=== PATIENT | female | born 1995 | race Caucasian/White ===

== ENCOUNTER 2021-07-29 15:08 | Inpatient (IN) ==
--- NOTE | 2021-07-29 15:27 | History & Physical Report ---
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 * GBS-, RI, Rh+ * Presented to L&D following confirmed SROM during MARCIA visit * Admit to L&D * NPO except sips and chips * PRN Pitocin for IOL * Epidural requested/administered * Lactated Ringer's at 125 mL * Continuous electronic heart monitoring * Anticipate History of Present Illness Primary Care Provider: NO PCP Stefania is a 26-year-old [id number] currently at 40.0 WGA with an AWAIS 07/29/2021 as determined by last menstrual period who is here for induction due to SROM confirmed on exam during routine OB visit earlier today. Her was complicated by HGSIL/CAMPBELL grade 3 (status post colposcopy on 05/12no progression). + Contractions; + movement; + fluid loss; no bloody show Had regular appointments with OB. Labs: 07/29/2021 Blood type: B+ Antibody screen: Negative H.9 Hct: 37.1 WBC: 14.45 Plt: 214 Rubella: Immune RPR: Nonreactive Gonorrhea: Not detected Chlamydia: Not detected HIV: Negative HbSAg: Negative GBS: Negative Other screens: cff-DNA: Low risk for trisomy 13, 18, 21, monosomy X, triploidy CF: Negative SMA: Negative Allergies Allergy/AdvReac Type Severity Reaction Status Date / Time No Known Allergies Allergy Verified 07/29/21 15:36 Home Medications Medication Instructions Recorded Confirmed Type prenat.vits,clemente,lvp-xpsi-edzbi 1 tab PO DAILY 07/29/21 07/29/21 History Patient History Medical History (Updated 07/29/21 @ 16:08 by Sarina Salazar MD) No significant medical problems Unknown family medical history Surgical History [place] teeth extracted Family History Unknown Family history unknown patient adopted Social History (Updated 05/20/21 @ 10:05 by Jenna Wood RN) Smoking Status: Never smoker Second Hand Exposure: No; Hx Alcohol Use: No Hx Substance Use: No Preferred Language: Swedish Communication Ability: Effective Client Account Specialist Required: No Beliefs That Will Affect Care: None marital status: marital status details: Gutierrez Bianchi (33) [phone] Current Living Situation: Spouse Current Living Situation Comment: lives with spouse and 2 dogs current occupational status: employed current occupation: Administration Manager Other Information That Helps Us Care for You: No Feels Safe at Home: Yes Safety Concerns: Feels Safe At This Time Assistive Devices: None Review of Systems All systems reviewed & are unremarkable except as noted in HPI & below Physical Exam Physical Exam: General: Alert, oriented. No acute distress. Cardiac: Regular rate and rhythm, no murmurs/rubs/gallops. Respiratory: Clear to auscultation bilaterally a/p, no wheezes/rales/rhonchi. No increased work of breathing. Symmetrical chest rise. No respiratory distress. Pelvic: Dilation 4 cm; Effacement 90; Station -1, per Dr. Agudelo Lower Extremities: No lower extremity edema or swelling. No deep calf pain. Meily's negative bilaterally Baseline: 140 bpm Variability: Moderate Accelerations: Present Decelerations: None Results & Data ([facility]) Vital Signs (Past 12 Hours) Vital Signs Temp Pulse Resp BP 07/29/21 15:16 36.6 C 59 L 20 140/76 Resident Activity Tracking Resident Involvement: Resident Care Provided Care Provided: OB Delivery
[2021-07-29] MEDS ORDERED: OXYTOCIN 30 UNITS/500 ML BAG IV PRN (15:34)
[2021-07-29 16:07] LABS: Hematocrit (blood only) 37.1 % (37-47); Hemoglobin 11.9 g/dL (12.0-16.0); Mean Corpuscular Hemoglobin 26.7 pg (25-34); Mean Corpuscular Hgb Conc 32.1 g/dL (32-36); Mean Corpuscular Volume 83.2 fL (80-100); Platelet Count 214 K/uL (130-400); RDW Coefficient of Variation 16.7 % (11.5-14.5); RDW Standard Deviation 50.4 fL (36.4-46.3); Red Blood Count 4.46 M/uL (4.2-5.4); White Blood Count 14.45 K/uL (4.8-10.8)
[2021-07-29] MEDS ORDERED: fentaNYL citrate 100 MCG/2 ML VIAL ONE (16:24)
[2021-07-29] MEDS ORDERED: ePHEDrine sulfate 50 MG/ML AMP ONE (16:24)
[2021-07-29] MEDS ORDERED: SODIUM CHLORIDE 0.9% INJ 10 ML VIAL ONE (16:24)
[2021-07-29] MEDS ORDERED: BUPIVACAINE 0.25% 30 ML VIAL ONE (16:24)
[2021-07-29] MEDS ORDERED: fentaNYL 2MCG/ML ROPIVACAINE 1.25MG/ML 100 ML BAG EPI ONE (16:25)
[2021-07-29] MEDS: LACTATED RINGER'S 1,000 ML IV PRN ×2 (16:39→17:37)
[2021-07-29] MEDS ORDERED: diphenhydrAMINE 50 MG/ML VIAL IV PRN (19:11)
[2021-07-29] MEDS ORDERED: ONDANSETRON INJ 2 MG/ML 2 ML VIAL IV PRN (19:11)
[2021-07-29] MEDS ORDERED: ePHEDrine sulfate 50 MG/ML AMP IV PRN (19:11)
[2021-07-29] MEDS ORDERED: NALOXONE HCL 1 MG in SODIUM CHLORIDE 0.9% 1000ML 1,000 ML IV PRN (19:11)
[2021-07-29] MEDS ORDERED: PROMETHAZINE HCL 6.25 MG in SODIUM CHLORIDE 0.9% 50 ML IV PRN (19:11)
[2021-07-29] MEDS ORDERED: NALBUPHINE HCL INJ 10 MG/ML AMP IV PRN (19:11)
[2021-07-29] MEDS ORDERED: fentaNYL 2MCG/ML ROPIVACAINE 1.25MG/ML 100 ML BAG EPI PRN (19:11)
[2021-07-29] MEDS ORDERED: NALOXONE HCL 0.4 MG/1 ML VIAL/CARP IV PRN (19:11)
--- NOTE | 2021-07-29 19:11 | Anesthesiology Consultation ---
Date of Service July 29, 2021 Assessment & Plan Chart Review Chart Review: Patient NOT seen in Pre Admission Testing and Acceptable Risk for Labor Epidural Consults Requested none ASA ASA2 Proposed Anesthesia Anesthesia Type: Labor Epidural Risk / Benefits Reviewed With: PT / POA / Parent / Guardian, Accepts Plan and Informed Consent Obtained History Height/Weight Height: 5 ft Weight: 51.71 kg Allergies Allergy/AdvReac Type Severity Reaction Status Date / Time No Known Allergies Allergy Verified 07/29/21 15:36 Medications Home Medications Medication Instructions Recorded Confirmed Last Taken prenat.vits,clemente,wcr-vmyi-teqvc 1 tab PO DAILY 07/29/21 07/29/21 07/29/21 08:00 Active Medications Generic Name Dose Route Start Last Admin Trade Name Freq PRN Reason Stop Dose Admin Lactated Ringer's 1,000 mls @ 125 mls/hr 07/29/21 15:34 07/29/21 17:37 Lr IV 07/31/21 15:33 125 mls/hr .Q8H PRN Administration L&D Protocol Protocol Past Medical History Medical History (Updated 07/29/21 @ 16:08 by aSrina Salazar MD) No significant medical problems Unknown family medical history Exercise / Class Metabolic Activity II 4-5 Yardwork/Stairs/Walk up hill Past Family History Family History Unknown Family history unknown patient adopted Past Surgical History Surgical History [place] teeth extracted Past Anesthesia History No Hx of Anesthesia Complications and No Family Hx of Anesthesia Complications History of PONV No Hx of PONV and No Hx of Motion Sickness Social History Smoking Status: Never smoker Hx Alcohol Use: No Hx Substance Use: No Physical Exam Vital Signs Last Vital Signs Temp 36.9 C 07/29/21 17:06 Pulse 62 07/29/21 19:10 Resp 20 07/29/21 18:24 BP 121/73 07/29/21 19:00 Pulse Ox 99 07/29/21 19:10 ENMT Mouth: no dentition abnormality Thyromental Distance: > or= 3.5 Finger Breadths Mallampati Class: II Neck normal visual inspection Respiratory normal respiratory effort Auscultation: lungs clear to auscultation bilaterally Cardiovascular Rate/Rhythm: regular rate and regular rhythm Psychiatric Orientation: alert Testing Laboratory Results 07/29/21 15:59
--- NOTE | 2021-07-29 23:22 | Delivery Summary ---
Vaginal Delivery Summary Date of Service July 29, 2021 Vaginal Delivery Summary DIAGNOSES: 1. Parrish intrauterine at 40wk gestation. 2. Spontaneous onset of labor, SROM. 3. Group B Streptococcus neg. PROCEDURE: Spontaneous vaginal delivery and repair of second degree laceration. SURGEON: Abbey Perez MD. LABORATORY COURIER: None. ESTIMATED BLOOD LOSS: 500 mL. COMPLICATIONS: None. PLACENTA: Spontaneous and intact with a 3-vessel cord. DISPOSITION: Stable to labor and delivery. DESCRIPTION: The patient pushed well and brought the head to in DOA position. The 's head was allowed to deliver with contraction force and no further active pushing, with the perineum protected during this time. There was one nuchal cord reduced on the perineum. The right shoulder was anterior. The shoulders and body delivered without any difficulty, and the was placed on the maternal abdomen. It was vigorous and moving all extremities, and making respiratory efforts. The cord was doubly clamped by the MD and then cut by the FOB. The placenta delivered spontaneously and was noted to be intact and with a 3VC. The cervix, vagina and perineum were examined and were found to have a second degree laceration, repaired with vicryl suture in the usual manner including a crown stitch to rebuild the perineal body. The fundus was firm and lochia minimal immediately after delivery. Shortly after I left the room I was called back, as the patient appeared to have a brief neurologic event; she closed her eyes and made a shuddering movement limited to her arms that lasted approximately 10 to 15 seconds per the FOB and nurses present. After the movement, she immediately was alert. I re-entered her room as she was finishing the event, as I had been just outside her door at the nursing station when I heard the people in the room call for assistance as they noticed the unusual event. Marci Arce asked the patient what just happened, and the patient focused right on Marci, spoke normally, and seemed surprised that everyone was so worried about her; she said she thought she just drifted off to sleep for a second. She was very pale when I first entered the room and quickly regained a pink normal skin color. Vitals showed BP 80s/50s and pulse 60s which was a significant drop from prior, and consistent with a vagal episode. There was no post-ictal state, nor loss of bowel/bladder control, nor did the event last long enough or fit a description of a generalized enough event to represent an eclamptic seizure. She is maintaining a normal level of alertness and awareness, and is being monitored with LOUANN Harris in room at bedside as change of shift has now occurred. BP remains 95/55 at this time with pulse 63, dilute pitocin is running wide open, and patient feels well. Fundus has been firm and well below umbilicus with trace lochia throughout. [facility] Vaginal Delivery Charge Vaginal Delivery Codes: 35133 global code for the antepartum, delivery, and post-
[2021-07-29] MEDS ORDERED: BENZOCAINE 20% AER SPR 82.5 GM CAN EXT PRN (23:36)
[2021-07-29] MEDS ORDERED: SUPERCREAM 0.870% 15 GM JAR EXT PRN (23:36)
[2021-07-29] MEDS ORDERED: DIPHTHERIA/TETANUS/PERTUSSIS 0.5 ML SYR/VIAL IM ONE (23:36)
[2021-07-29] MEDS ORDERED: ACETAMINOPHEN 325 MG TAB PO PRN (23:36)
[2021-07-29] MEDS ORDERED: oxyCODONE/ACETAMINOPHEN 5mg/325mg TAB PO PRN (23:36)
[2021-07-29] MEDS ORDERED: HYDROCORTISONE ACETATE 25 MG SUPP PR PRN (23:36)
[2021-07-30] MEDS: LACTATED RINGER'S 1,000 ML IV PRN (02:00)
[2021-07-30] MEDS ORDERED: ONDANSETRON INJ 2 MG/ML 2 ML VIAL IV PRN (02:03)
--- NOTE | 2021-07-30 02:53 | Anesthesia Procedure Note ---
Date of Service July 30, 2021 Anesthesia Post Epidural Note Vital Signs Vital Signs: Temp Pulse Resp BP Pulse Ox 36.6 C 90 18 111/58 L 100 07/29/21 23:05 07/30/21 02:06 07/29/21 23:50 07/30/21 02:06 07/30/21 01:42 Notes Mental Status: alert / awake / arousable Nausea / Vomiting: adequately controlled Pain: adequately controlled Airway Patency, RR, SpO2: stable & adequate BP & HR: stable & adequate Hydration State: stable & adequate Neuraxial Anesthesia: was administered and sensory block is resolving Anesthetic Complications: no major complications apparent and Pt Satisfied with anesthetic care Epidural: Removed without complications and With tip intact
[2021-07-30 03:07] LABS: Hematocrit (blood only) 24.9 % (37-47); Hemoglobin 8.1 g/dL (12.0-16.0)
[2021-07-30] MEDS ORDERED: AMMONIA, AROMATIC INHAL 1 EA AMP INH ONE ×2 (05:29→05:33)
[2021-07-30] MEDS: IBUPROFEN 600 MG TAB PO PRN ×4 (05:39→23:45)
--- NOTE | 2021-07-30 06:29 | Communication Note ---
Date of Service: July 30, 2021 I have just been notified that patient had two further vagal episodes, each quite clearly "passing out" with upright positioning, a sense of feeling faint followed by a few seconds of loss of consciousness and quick recovery. One was when she was seated in a wheelchair for transfer, the other just now when she was stood up to go to bathroom. She has been normotensive and without tachycardia other than these episodes, both of which were associated with upright positioning. After the most recent episode she was straight-cathed for 1000cc and this may also have been a factor in her fainting. H&H checked yesterday after delivery was 8.1, and another is pending this morning. There has been no excessive lochia or concern for hemorrhage after the immediate losses at delivery. Will await morning labs to determine if transfusion may be indicated. IV crystalloid bolus has been utilized.
--- NOTE | 2021-07-30 08:06 | Obstetrical Progress Note ---
Date of Service <Sarina Salazar MD - Last Filed: 07/30/21 08:06> July 30, 2021 Assessment & Plan <Sarina Salazar MD - Last Filed: 07/30/21 08:06> (1) Encounter for care and examination after delivery: PPD 1: stable, routine management * patient voiding and ambulating without difficulty * pain well controlled on analgesia * attempt trial of full liquid diet this a.m./afternoon; advance diet as tolerated * trend CBCs * breast feeding * reassess d/c readiness tomorrow <Abbey Perez MD - Last Filed: 07/30/21 08:12> (1) Encounter for care and examination after delivery: Subjective <Sarina Salazar MD - Last Filed: 07/30/21 08:06> Stefania is a 26-year-old who is now PPD 1 following spontaneous vaginal delivery 40.0 weeks. Reports feeling well overall this morning. Subsiding pain well managed on analgesics. Voided via straight catheter x1. Some nausea with attempted trial of full liquid diet, now s/p Zofran. Patient passed out while attempting to ambulate to the bathroom. Improved lochia this morning. for now (will switch to bottlefeeding should breast-feeding prove onerous). Review of Systems Denies fever, chills, sweats Denies shortness of breath, difficulty breathing, chest pain, palpitations, chest pressure. Denies breast pain. Denies dysuria. Denies headache or changes in vision Physical Exam <Sarina Salazar MD - Last Filed: 07/30/21 08:06> General: Alert, oriented. No acute distress. Cardiac: Regular rate and rhythm, no murmurs/rubs/gallops. Respiratory: Clear to auscultation bilaterally a/p, no wheezes/rales/rhonchi. No increased work of breathing. Symmetrical chest rise. No respiratory distress. Abdomen: Soft, nontender, nondistended. Bowel sounds present. Uterus: Uterine fundus firm, palpable 2 cm below umbilicus. Lower Extremities: No lower extremity edema or swelling. No deep calf pain. Emily's negative bilaterally.. Results & Data ([facility]) <Sarina Salazar MD - Last Filed: 07/30/21 08:06> Vital Signs (Past 12 Hours) Vital Signs Temp Pulse Resp BP BP Pulse Ox 07/30/21 04:55 36.6 C 16 111/74 07/30/21 02:06 90 111/58 L 100 07/30/21 01:42 75 100 07/30/21 01:37 79 100 07/30/21 01:32 77 100 07/30/21 01:29 82 111/65 07/30/21 01:27 69 100 07/30/21 01:22 76 88/61 L 100 07/30/21 01:16 81 100 07/30/21 01:11 76 100 07/30/21 01:06 80 100 07/30/21 01:01 81 100 07/30/21 00:56 88 100 07/30/21 00:51 82 106/67 100 07/30/21 00:46 88 100 07/30/21 00:41 74 100 07/30/21 00:36 74 100 07/30/21 00:31 105 H 100 07/30/21 00:26 125 H 100 07/30/21 00:21 78 125/63 100 07/30/21 00:16 81 100 07/30/21 00:11 77 98 07/30/21 00:06 90 112/55 L 100 07/30/21 00:01 76 100 07/29/21 23:56 80 100 07/29/21 23:51 79 116/64 100 07/29/21 23:50 18 07/29/21 23:46 97 H 100 07/29/21 23:41 95 H 100 07/29/21 23:36 98 H 112/65 100 07/29/21 23:31 76 100 07/29/21 23:26 88 100 07/29/21 23:21 96 H 95/58 L 100 07/29/21 23:16 72 100 07/29/21 23:11 63 100 07/29/21 23:06 67 100 07/29/21 23:05 36.6 C 18 07/29/21 23:02 67 95/55 L 07/29/21 23:01 90 100 07/29/21 23:00 69 94/54 L 07/29/21 22:56 67 89/54 L 100 07/29/21 22:54 70 87/51 L 07/29/21 22:45 115 H 113/67 07/29/21 22:36 112 H 99 07/29/21 22:31 81 98 07/29/21 22:26 99 H 99 07/29/21 22:21 68 99 07/29/21 22:16 68 100 07/29/21 22:15 97 H 191/108 H 07/29/21 22:11 87 99 07/29/21 22:07 90 94 07/29/21 22:06 72 97 07/29/21 22:01 64 20 99 07/29/21 21:58 77 93 07/29/21 21:56 88 100 07/29/21 21:51 79 100 07/29/21 21:46 74 99 07/29/21 21:45 61 146/80 H 07/29/21 21:41 76 99 07/29/21 21:36 76 98 07/29/21 21:35 85 93 07/29/21 21:31 20 07/29/21 21:30 65 144/86 H 98 07/29/21 21:25 61 100 07/29/21 21:20 72 100 07/29/21 21:15 58 L 151/87 H 100 07/29/21 21:10 69 100 07/29/21 21:05 57 L 100 07/29/21 21:01 37.0 C 20 07/29/21 21:00 64 139/82 100 07/29/21 20:55 60 100 07/29/21 20:50 69 100 07/29/21 20:45 58 L 131/77 100 07/29/21 20:40 60 100 07/29/21 20:35 58 L 100 07/29/21 20:31 57 L 20 137/78 07/29/21 20:30 57 L 100 07/29/21 20:25 57 L 100 07/29/21 20:20 59 L 100 07/29/21 20:15 63 125/82 100 07/29/21 20:10 58 L 20 100 07/29/21 20:05 57 L 100 07/29/21 20:01 69 125/83 07/29/21 20:00 61 99 07/29/21 19:55 56 L 20 99 <Abbey Perez MD - Last Filed: 07/30/21 08:12> Co-Signing Physician Notes Resident Physician Supervision Note: I interviewed and examined the patient. Discussed with Dr. Michaels and agree with findings and plan as documented in the note. Any exceptions or clarifications are listed here: [ ] Documented By: Abbey Perez MD, FACOG Resident Activity Tracking <Sarina Salazar MD - Last Filed: 07/30/21 08:06> Resident Involvement: Resident Care Provided Care Provided: OB Delivery
[2021-07-30] MEDS: PRENATAL VITAMIN 1 TAB PO SCH (08:35)
[2021-07-30] MEDS: DOCUSATE SODIUM 100 MG CAP PO SCH ×2 (08:35→20:25)
[2021-07-30 08:48] LABS: Hematocrit (blood only) 24.7 % (37-47); Hemoglobin 7.9 g/dL (12.0-16.0); Mean Corpuscular Hemoglobin 26.6 pg (25-34); Mean Corpuscular Volume 83.2 fL (80-100); Mean Platelet Volume 11.2 fL (7.4-10.4); Platelet Count 190 K/uL (130-400); RDW Standard Deviation 50.8 fL (36.4-46.3); Red Blood Count 2.97 M/uL (4.2-5.4); White Blood Count 23.79 K/uL (4.8-10.8)
--- NOTE | 2021-07-30 16:04 | Obstetrical Progress Note ---
Date of Service July 30, 2021 Assessment & Plan (1) Encounter for care and examination after delivery: Plan: H/H stable from immediately after delivery, pt feeling improved. Notes that when she even gets 1 vial of blood drawn, she feels fatigued for the next few hours and that is normal for her. I suspect her responses are due to her size and lack of much reservoir to respond to an EBL from delivery. Blood count is stable and would not warrant blood transfusion, we discussed transfusion again given her symptoms and she feels ok that do not think indicated at this time, particularly given what her normal response to blood loss is. Iron is now ordered to start tonight. Will continue to monitor. Admission and Anticipated Discharge Date Admission Date: July 29, 2021 Subjective Pt resting comfortably in bed, feeding baby. Up to bathroom a bit ago and got tired at the end, had some assistance but no vagal episode. Physical Exam Constitutional: WD/WN, vitals as above Respiratory: normal respiratory effort; no respiratory distress and no labored breathing Results & Data ([facility]) Vital Signs (Past 12 Hours) Vital Signs Temp Resp BP 07/30/21 15:32 97.7 F 16 111/70 07/30/21 11:50 97.9 F 20 113/70 07/30/21 09:18 98.2 F 16 122/81 07/30/21 04:55 97.9 F 16 111/74 PG Care Time/CCT Total # of Minutes Spent Total Time Spent with Patient: Total time spent is greater than 50% in coordination of care (as documented) at patient's floor/unit and/or counseling patient: Coding Level of Care Code None Diagnoses Encounter for care and examination after delivery Z39.2
[2021-07-30] MEDS: FERROUS SULFATE 325 MG TAB PO SCH (19:43)
--- NOTE | 2021-07-31 08:16 | Obstetrical Progress Note ---
Date of Service July 31, 2021 Assessment & Plan (1) Encounter for care and examination after delivery: 26 yo PP2 from , doing well -Meeting all pp milestones. -B+/rubella immune/ -f/u 6 weeks for appt, stable for d/c home today. Discussed getting up slowly when at home, continuing iron pill, pt verbalized understanding Subjective Ambulation: ambulating normally Voiding: no voiding problems Passing Gas:: Yes Diet Tolerance:: regular diet Lochia:: Small Feeding Type:: breast feeding Pain well managed with medication. Pt's ability to ambulate is improving, pt had noted yesterday that she gets very fatigued with even getting blood drawn. Feels like she is doing better now, still gets fatigued but not like yesterday Review of Systems Denies fevers, chills, n/v, EWING, CP, SOB Physical Exam Constitutional WD/WN, vitals as above no acute distress Respiratory normal respiratory effort, lungs clear to auscultation Cardiovascular RRR, no murmur, no edema Gastrointestinal (Abdomen) Percussion/Palpation: abdomen soft; abdomen nontender fundus firm at umbilicus and NT Musculoskeletal BLE symmetric, nonerythematous, nontender Results & Data ([facility]) Vital Signs (Past 12 Hours) Vital Signs Temp Pulse Resp BP 07/31/21 00:10 98.1 F 72 16 115/73 07/30/21 20:30 97.9 F 85 16 121/72
[2021-07-31] MEDS: PRENATAL VITAMIN 1 TAB PO SCH (08:58)
[2021-07-31] MEDS: IBUPROFEN 600 MG TAB PO PRN (08:58)
[2021-07-31] MEDS: DOCUSATE SODIUM 100 MG CAP PO SCH (08:58)
[2021-07-31 09:13] LABS: Hematocrit (blood only) 21.2 % (37-47); Hemoglobin 6.7 g/dL (12.0-16.0)
--- NOTE | 2021-07-31 09:39 | Communication Note ---
Date of Service: July 31, 2021 RN informed me that H/H had returned at 6.7. Met with pt again following result and reviewed trend of H/H with her. Since I was last in room pt states she went to bathroom and that was the best that she had felt since delivery and feels like she has been improving each time that she has gotten up overnight. This last time she did not feel fatigued, lightheaded/dizzy, or like her legs were weak. Vitals remain stable. Discussed risks vs benefits of blood transfusion. At this time, pt would like to see how she does in the shower and then make de cision. RN informed, she will see how she does
[2021-07-31] MEDS ORDERED: SODIUM CHLORIDE 0.9% 250 ML IV PRN (10:20)
[2021-07-31] MEDS ORDERED: diphenhydrAMINE Capsule 25 MG CAP PO ONE (10:22)
--- NOTE | 2021-07-31 10:29 | Communication Note ---
Date of Service: July 31, 2021 Pt and partner told nursing they would actually like to proceed with transfusion which I am in agreement with. Consent for blood transfusion including risks, benefits, alternatives with risks including fever, chills, allergic reaction, TRALI, infection were reviewed. Consent signed after all questions answered, will plan to pre-medicate and transfuse 1u with a post transfusion h/h 1hr after
[2021-07-31] MEDS: FERROUS SULFATE 325 MG TAB PO SCH (11:45)
[2021-07-31] MEDS ORDERED: ONDANSETRON 4 MG OD TAB PO PRN (13:59)
[2021-07-31 15:13] LABS: Hematocrit (blood only) 28.3 % (37-47); Hemoglobin 9.1 g/dL (12.0-16.0)
--- NOTE | 2021-07-31 17:07 | Obstetrical Progress Note ---
Date of Service July 31, 2021 Assessment & Plan (1) Encounter for care and examination after delivery: Plan: Feeling much better after transfusion, feels comfortable with discharge. Stable to do so, will continue iron Admission and Anticipated Discharge Date Admission Date: July 29, 2021 Subjective s/p 1u pRBC. H/H showed good rise. Was able to ambulate to bathroom, void and have BM without difficulty. Denies lightheadedness, dizziness, fatigue Physical Exam Constitutional: WD/WN, vitals as above Respiratory: normal respiratory effort; no respiratory distress and no labored breathing Results & Data ([facility]) Vital Signs (Past 12 Hours) Vital Signs Temp Pulse Pulse Resp BP BP Pulse Ox 07/31/21 17:00 97.7 F 72 18 128/69 98 07/31/21 14:45 97.7 F 81 18 119/75 98 07/31/21 13:45 97.9 F 74 18 113/70 100 07/31/21 13:15 97.5 F L 67 18 132/83 100 07/31/21 12:45 98.2 F 69 18 122/76 100 07/31/21 12:30 97.7 F 72 18 97/64 L 100 07/31/21 12:12 97.3 F L 74 18 122/77 07/31/21 08:50 97.7 F 72 18 128/69 99 PG Care Time/CCT Total # of Minutes Spent Total Time Spent with Patient: Total time spent is greater than 50% in coordination of care (as documented) at patient's floor/unit and/or counseling patient: Coding Level of Care Code None Diagnoses Encounter for care and examination after delivery Z39.2
== END 2021-07-31 19:45 | disposition home or self-care (01) | DRG 807 ==
LOC: OPB 15:08 → 4S1 15:09 → 4S2 07-30 02:20

== ENCOUNTER 2025-07-02 23:07 | Inpatient (IN) ==
[2025-07-02] MEDS ORDERED: LIDOCAINE 1% LOCAL 20 ML VIAL INFIL PRN (23:54)
[2025-07-02] MEDS ORDERED: ACETAMINOPHEN 500 MG TAB PO PRN (23:54)
[2025-07-02] MEDS ORDERED: OXYTOCIN 30 UNITS/NSS 30 UNITS/500 ML BAG IV PRN (23:54)
[2025-07-02] MEDS ORDERED: CALCIUM CARBONATE 500 MG CHEWABLE TAB PO PRN (23:54)
[2025-07-03] MEDS: LACTATED RINGER'S 1,000 ML IV PRN (00:03)
[2025-07-03] MEDS: PENICILLIN GK 6 MU in DEXTROSE 5% 250 ML IV STA (00:15)
[2025-07-03 00:27] LABS: Hematocrit (blood only) 36.8 % (37.0-47.0); Hemoglobin 13.4 g/dL (12.0-16.0); Mean Corpuscular Hemoglobin 31.6 pg (25.0-34.0); Mean Corpuscular Volume 86.8 fL (80.0-100.0); Platelet Count 207 K/uL (130-400); RDW Standard Deviation 40.2 fL (36.4-46.3); Red Blood Count 4.24 M/uL (4.20-5.40); White Blood Count 15.38 K/ul (4.8-10.8)
--- NOTE | 2025-07-03 00:54 | Anesthesiology Consultation ---
Date of Service July 03, 2025 Assessment & Plan Chart Review Chart Review: Acceptable Risk for Labor Epidural Consults Requested none History Height/Weight Height: 5 ft Weight: 56.245 kg Allergies Allergy/AdvReac Type Severity Reaction Status Date / Time No Known Allergies Allergy Verified 07/02/25 15:13 Medications Home Medications Medication Instructions Recorded Confirmed Last Taken ascorbate calcium (vitamin C) 500 500 mg PO DAILY 11/20/22 07/02/25 07/02/25 mg tablet hydrocortisone 1 % topical cream 1 applic topical DAILY PRN 01/08/23 07/02/25 Unknown (Nieto Formula HC) hemorrhoid #28.4 grams clobetasol 0.05 % topical cream 1 applic topical BID PRN Rash 07/10/24 07/02/25 Unknown vits no.126-ferrous fum 1 tab PO DAILY 08/29/24 07/02/25 07/02/25 28 mg iron-folic acid 800 mcg tablet (Classic ) progesterone micronized 200 mg 200 mg vaginal QPM 30 days #30 caps 03/02/25 07/02/25 07/01/25 capsule (Prometrium) Active Medications Generic Name Dose Route Start Last Admin Trade Name Freq PRN Reason Stop Dose Admin Lactated Ringer's 1,000 mls @ 125 mls/hr 07/02/25 23:54 07/03/25 00:03 Lr IV 07/04/25 23:53 999 mls/hr .Q8H PRN Administration L&D Protocol Protocol Penicillin G Potassium 6 mu/ 262 mls @ 250 mls/hr 07/02/25 23:54 07/03/25 00:15 Dextrose IV 07/03/25 00:56 250 mls/hr NOW STA Administration Past Medical History Medical History Vaginitis 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 HSIL (high grade squamous intraepithelial lesion) on Pap smear of cervix 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 History of blood transfusion (2021) after vaginal delivery, had syncopal episodes Hx of syncope (2021) after delivery of baby-required blood transfusion- no issues since Past Family History Family History Unknown Family history unknown Past Surgical History Surgical History Status post colposcopy H/O LEEP Status post hysteroscopy Hx of dilation and curettage [place] teeth extracted Social History Smoking Status: Never smoker Do You Dip or Chew Tobacco: No Hx Alcohol Use: Yes Alcohol type: wine alcohol intake frequency: a few times a week Hx Substance Use: No substance use type: does not use Physical Exam Vital Signs Last Vital Signs Temp 36.7 C 07/02/25 23:33 Pulse 89 07/03/25 00:51 Resp 18 07/02/25 23:33 BP 140/78 07/02/25 23:23 Pulse Ox 100 07/03/25 00:51 Testing Laboratory Results 07/03/25 00:11
[2025-07-03] MEDS ORDERED: NALOXONE HCL 0.4 MG/1 ML VIAL/CARP IV PRN ×2 (00:55→13:33)
[2025-07-03] MEDS ORDERED: NALOXONE HCL 1 MG in SODIUM CHLORIDE 0.9% 1,000 ML IV PRN ×2 (00:55→13:33)
[2025-07-03] MEDS ORDERED: SODIUM CHLORIDE 0.9% PF INJ 10 ML VIAL EPI PRN (00:55)
[2025-07-03] MEDS ORDERED: ROPIVACAINE 0.5% PF 5 MG/ML 20 ML VIAL EPI PRN (00:55)
[2025-07-03] MEDS ORDERED: BUPIVACAINE 0.25% PF 30 ML VIAL EPI PRN (00:55)
[2025-07-03] MEDS ORDERED: fentANYL 2 MCG/ML BUPIVacaine 0.125%-NSS 100ML BAG EPI PRN (00:55)
[2025-07-03] MEDS ORDERED: diphenhydrAMINE 50 MG/ML VIAL IV PRN ×3 (00:55→13:33)
[2025-07-03] MEDS ORDERED: NALBUPHINE HCL INJ 10 MG/ML AMP IV PRN ×2 (00:55→13:33)
[2025-07-03] MEDS ORDERED: LIDOCAINE 2% MPF LOCAL 5 ML VIAL EPI PRN (00:55)
[2025-07-03] MEDS: LIDOCAINE 2%/EPINEPHRINE 1:200,000 20 ML PF ONE (01:18)
[2025-07-03] MEDS: fentANYL 2 MCG/ML BUPIVacaine 0.125%-NSS 100ML BAG ONE (01:19)
[2025-07-03] MEDS ORDERED: OXYTOCIN 30 UNITS/NSS 30 UNITS/500 ML BAG IV PRN (03:42)
[2025-07-03] MEDS: PENICILLIN GK 3 MU in DEXTROSE 5% 100 ML IV PRN (04:26)
[2025-07-03] MEDS ORDERED: OXYTOCIN 10 UNITS/ML VIAL ONE ×4 (06:06→06:18)
[2025-07-03] MEDS ORDERED: MoRPHine SULFATE PF 1 MG/ML 10 ML AMP/VIAL ONE (06:10)
[2025-07-03] MEDS ORDERED: HYDROCORTISONE ACETATE 25 MG SUPP PR PRN (06:33)
[2025-07-03] MEDS ORDERED: diphenhydrAMINE Capsule 25 MG CAP PO PRN (06:33)
[2025-07-03] MEDS ORDERED: CALCIUM CARBONATE 500 MG CHEWABLE TAB PO PRN (06:33)
[2025-07-03] MEDS ORDERED: MAGNESIUM HYDROXIDE SUSP 30 ML UDC PO PRN (06:33)
[2025-07-03] MEDS ORDERED: BENZOCAINE 20% SPRY 85 APPLN/85 GM CAN EXT PRN (06:33)
[2025-07-03] MEDS ORDERED: SENNA 8.6 MG TAB PO PRN (06:33)
[2025-07-03] MEDS ORDERED: HYDROmorphone INJ 0.5 MG/0.5 ML SYR IV PRN ×2 (06:33→13:33)
--- NOTE | 2025-07-03 06:34 | Operative Report ---
Post Operative Report Pre & Post Diagnosis Operation Date: 07/03/25 05:30 Pre-Op Diagnosis: 1.) SROM 2.) Spontaneous labor 3.) intolerance to labor 4.) Terminal bradycardia Post-Op Diagnosis: Same as pre op I identified the patient and participated in the time-out.: Yes Procedure Operation Date: 07/03/25 05:30 Actual Procedures p Primary Section for the of a live female child at 0544. - Darwin Agudelo MD Surgeon Darwin Agudelo MD Paper Rewinder Operator Nursing staff Quantitative Blood Loss (QBL) 584 Findings Consistent with Post-Op Diagnosis Specimens Placenta and cord blood Indications Called to bedside for evaluation due to recurrent variable decelerations with minimal variability. Patient was checked and found to be 1 cm dilated 80% effaced -2 station. At that time heart rate was within the normal range and discussed proceeding with a secondary to intolerance of labor remote from delivery with inability to augment. Presented to discussed consent forms which were reviewed and signed in detail. During the consent review and discussion heart rate was noted to proceed into a terminal bradycardia with heart rate in the 60s to 70s without return to baseline for over 5 minutes. Due to the category 2 tracing preceding and transitioning into terminal bradycardia we proceed with a stat section and the patient was quickly taken to the operating room. Description of Procedure Upon presentation to the operating room anesthesia was already present and preparing to bolus the epidural which was bolused as part of the prep process. Placed the heart rate monitor which was still noted intermittently in the 60s and otherwise nondetectable. I did a test for adequate pain control with an Allis clamp before sterile set up and patient noted no significant pain with Allis. A Betadine splash was performed and drape applied. A Pfannenstiel incision was made with a knife. The subcutaneous layers were then dissected bluntly and the fascia nicked in the midline and extended bluntly in both d irections. The abdomen was then entered bluntly and placed on stretch for adequate delivery space. Low transverse uterine incision was then made with a knife and the uterus entered bluntly and placed on stretch provide adequate room for delivery. was noted be in cephalic position and delivered without difficulty. appeared ashen with poor tone upon delivery and the cord was quickly doubly clamped and cut and taken to the awaiting nursery staff. Cord segment for Cord blood gases obtained. Attempt to get Cord blood for Rh eval was unsuccessful with no blood remaining in cord. Placenta delivered with gentle cord traction and fundal massage. Uterus was wrapped in a wet lap and cleaned of clot and debris's with a dry lap. Uterus was then reapproximated with 0 Vicryl continuous running locked stitch. A second imbricating layer of 0 Vicryl performed. Hemostasis noted and uterus returned to maternal abdomen. Inspection of the paracolic gutters performed and h emostasis noted. Inspection subcutaneous fascial muscle layers noted hemostasis. Fascia was reapproximated with 0 Vicryl in continuous running stitch. An x-ray was then performed as a count was not able to be performed prior to initiating the procedure and x-ray noted to be clear. The subcutaneous later reapproximated with 2-0 plain with continuous running stitch. Skin layers reapproximated with 3-0 Vicryl in a subcuticular stitch. Dermabond placed on top. No complications noted and blood loss per QBL in chart. I attest to the content of the Intraoperative Record and any orders documented therein. Any exceptions are noted below.
--- NOTE | 2025-07-03 06:49 | XRay Report ---
KUB CLINICAL HISTORY: emergency , no count COMPARISON STUDY: None. FINDINGS: A saline bag is layering on the patient. An epidural catheter is noted. There are no unexpe cted radiopaque foreign bodies within the abdomen or pelvis. IMPRESSION: No unexpected radiopaque foreign bodies within the abdomen or pelvis. ACT 112: Negative or not required by law. Electronically signed by: Maged Mendiola M.D. 07/03/2025 6:46 AM
--- NOTE | 2025-07-03 06:53 | Anesthesia Procedure Note ---
Date of Service July 03, 2025 Anesthesia Post Epidural Note Vital Signs Vital Signs: Temp Pulse Resp BP Pulse Ox 37.2 C 100 H 18 128/58 L 95 07/03/25 04:36 07/03/25 06:50 07/03/25 03:30 07/03/25 06:50 07/03/25 06:50 Notes Mental Status: alert / awake / arousable Nausea / Vomiting: adequately controlled Pain: adequately controlled Airway Patency, RR, SpO2: stable & adequate BP & HR: stable & adequate Hydration State: stable & adequate Neuraxial Anesthesia: was administered and sensory block is resolving Anesthetic Complications: no major complications apparent and Pt Satisfied with anesthetic care Epidural: Removed without complications and With tip intact
[2025-07-03 07:15] LABS: Cord Venous Blood PO2 42 mmHg (14.1-43.3)
[2025-07-03] MEDS: KETOROLAC 30 MG/ML VIAL IV SCH (07:18)
[2025-07-03] MEDS: ACETAMINOPHEN 325 MG TAB ONE (07:29)
[2025-07-03] MEDS ORDERED: Nursing to Pharmacy Communication SCH ×2 (07:30→10:00)
[2025-07-03] MEDS: ACETAMINOPHEN 325 MG TAB PO SCH ×2 (08:06→12:51)
[2025-07-03] MEDS: DOCUSATE SODIUM 100 MG CAP PO SCH (08:07)
[2025-07-03] MEDS: PRENATAL VITAMIN 1 TAB PO SCH (08:07)
[2025-07-03] MEDS: FERROUS SULFATE 325 MG TAB PO SCH (08:07)
[2025-07-03] MEDS: METHYLERGONOVINE MALEATE 0.2 MG/ML AMP IM ONE (08:23)
[2025-07-03] MEDS: DIPHTHER/TETAN/PERTUS Vaccine (Tdap, Adol/Adult) 0.5mL IM ONE (08:25)
--- NOTE | 2025-07-03 08:32 | Anesthesiology Progress Note ---
Date of Service July 03, 2025 Anesthesia Post Procedure Vital Signs Vital Signs: Temp Pulse Resp BP Pulse Ox 07/03/25 08:25 78 100 07/03/25 08:21 74 93 07/03/25 08:20 69 99 07/03/25 08:16 68 130/64 07/03/25 08:15 68 100 07/03/25 08:10 68 100 07/03/25 08:05 93 H 100 07/03/25 08:00 97 H 100 07/03/25 07:55 89 100 07/03/25 07:50 84 100 07/03/25 07:45 36.5 C 90 18 116/63 100 07/03/25 07:45 90 116/63 100 07/03/25 07:40 82 99 07/03/25 07:39 80 109/58 L 07/03/25 07:35 78 20 109/58 L 99 07/03/25 07:35 72 96 07/03/25 07:30 101 H 98 07/03/25 07:29 81 115/65 92 07/03/25 07:25 68 22 115/65 99 07/03/25 07:25 78 99 07/03/25 07:20 76 96 07/03/25 07:19 90 121/66 07/03/25 07:15 68 18 121/66 100 07/03/25 07:15 105 H 98 07/03/25 07:10 94 H 98 07/03/25 07:09 96 H 117/65 07/03/25 07:05 68 18 116/63 100 07/03/25 07:05 80 97 07/03/25 07:00 104 H 109/52 L 98 07/03/25 06:55 93 H 20 116/63 100 07/03/25 06:55 89 97 07/03/25 06:50 100 H 128/58 L 95 07/03/25 06:45 36.6 C 07/03/25 06:40 109 H 114/56 L 07/03/25 05:36 114 H 100 07/03/25 05:31 93 H 100 07/03/25 05:26 86 100 07/03/25 05:21 83 99 07/03/25 05:16 83 99 07/03/25 05:12 83 103/54 L 07/03/25 05:11 83 98 07/03/25 05:06 85 99 07/03/25 05:01 85 99 07/03/25 04:56 84 100 07/03/25 04:51 83 99 07/03/25 04:46 86 99 07/03/25 04:42 85 119/65 07/03/25 04:41 85 99 07/03/25 04:36 37.2 C 84 98 07/03/25 04:31 87 99 07/03/25 04:26 84 98 07/03/25 04:21 99 H 99 07/03/25 04:16 98 H 99 07/03/25 04:13 87 110/62 07/03/25 04:11 84 99 07/03/25 04:06 98 H 99 07/03/25 04:01 83 98 07/03/25 03:56 84 97 07/03/25 03:51 80 97 07/03/25 03:46 78 98 07/03/25 03:42 80 107/57 L 07/03/25 03:41 77 98 07/03/25 03:36 76 98 07/03/25 03:31 79 99 07/03/25 03:30 18 07/03/25 03:30 18 07/03/25 03:26 83 100 07/03/25 03:21 80 100 07/03/25 03:16 77 100 07/03/25 03:11 90 100 07/03/25 03:10 37.1 C 80 18 120/61 07/03/25 03:06 85 100 07/03/25 03:01 86 100 07/03/25 02:56 81 100 07/03/25 02:54 88 111/56 L 07/03/25 02:51 88 100 07/03/25 02:46 83 100 07/03/25 02:41 83 100 07/03/25 02:39 83 110/57 L 07/03/25 02:36 84 100 07/03/25 02:31 82 100 07/03/25 02:26 82 100 07/03/25 02:25 84 115/58 L 07/03/25 02:21 82 100 07/03/25 02:16 90 99 07/03/25 02:15 18 07/03/25 02:15 18 07/03/25 02:11 86 99 07/03/25 02:09 93 H 118/62 07/03/25 02:06 89 97 07/03/25 02:01 84 98 07/03/25 02:00 18 07/03/25 02:00 18 07/03/25 01:56 99 07/03/25 01:56 90 07/03/25 01:56 88 125/68 07/03/25 01:51 88 99 07/03/25 01:46 86 100 07/03/25 01:45 18 07/03/25 01:45 18 07/03/25 01:41 85 99 07/03/25 01:40 83 124/66 07/03/25 01:36 86 100 07/03/25 01:31 83 99 07/03/25 01:30 18 07/03/25 01:30 18 07/03/25 01:26 86 100 07/03/25 01:23 90 125/67 07/03/25 01:21 37.4 C 98 H 18 124/69 100 07/03/25 01:19 86 126/68 07/03/25 01:17 101 H 130/65 07/03/25 01:16 94 H 136/64 100 07/03/25 01:13 91 H 134/72 07/03/25 01:11 97 H 100 07/03/25 01:06 92 H 100 07/03/25 01:01 76 100 07/03/25 00:56 83 100 07/03/25 00:51 89 100 07/02/25 23:33 36.7 C 18 07/02/25 23:23 80 140/78 Transfer of Care Handoff Completed per policy Notes Mental Status: alert / awake / arousable and participated in evaluation Nausea / Vomiting: adequately controlled Pain: adequately controlled Airway Patency, RR, SpO2: stable & adequate BP & HR: stable & adequate Hydration State: stable & adequate Neuraxial Anesthesia: was administered and sensory block is resolving Anesthetic Complications: no major complications apparent and Pt Satisfied with anesthetic care
[2025-07-03] MEDS: ONDANSETRON INJ 2 MG/ML 2 ML VIAL IV PRN (08:41)
[2025-07-03] MEDS: SODIUM CHLORIDE 0.9% PF INJ 10 ML VIAL ONE (10:27)
[2025-07-03] MEDS: BUPIVACAINE 0.25% PF 30 ML VIAL ONE (10:27)
[2025-07-03] MEDS: LIDOCAINE 2%/EPINEPHRINE 1:200,000 20 ML PF EPI STA (10:27)
[2025-07-03] MEDS: SODIUM CHLORIDE 0.9% PF INJ 10 ML VIAL EPI STA (10:27)
[2025-07-03] MEDS: BUPIVACAINE 0.25% PF 30 ML VIAL EPI STA (10:27)
[2025-07-03] MEDS: PROMETHAZINE 12.5 MG/50.5 ML BAG IV PRN (11:03)
[2025-07-03] MEDS: OXYTOCIN 20 UNITS/LR 1,002 ML IV SCH (12:08)
[2025-07-03] MEDS ORDERED: ACETAMINOPHEN 325 MG TAB PO SCH (12:30)
[2025-07-03] MEDS: AMPICILLIN/SULBACTAM SOD 1,500 MG/100 ML BAG IV SCH (12:33)
[2025-07-03] MEDS: SIMETHICONE 80 MG CHEW PO SCH (12:52)
[2025-07-03] MEDS ORDERED: PROMETHAZINE 6.25 MG/50.25 ML BAG IV PRN (13:33)
[2025-07-03] MEDS ORDERED: LACTATED RINGER'S 500 ML IV PRN (13:33)
[2025-07-03] MEDS ORDERED: MoRPHine SULFATE PF 1 MG/ML 10 ML AMP/VIAL EPI ONE (13:33)
[2025-07-03] MEDS ORDERED: NALOXONE HCL 0.08 MG in SYRINGE 1.8 ML IV PRN (13:33)
[2025-07-03 13:40] LABS: Hematocrit (blood only) 31.7 % (37.0-47.0); Hemoglobin 11.2 g/dL (12.0-16.0); Mean Corpuscular Hemoglobin 31.2 pg (25.0-34.0); Mean Corpuscular Volume 88.3 fL (80.0-100.0); Platelet Count 184 K/uL (130-400); RDW Standard Deviation 41.8 fL (36.4-46.3); Red Blood Count 3.59 M/uL (4.20-5.40); White Blood Count 22.77 K/ul (4.8-10.8)
[2025-07-03] MEDS ORDERED: DC INTRASPINAL MORPHINE SCH (13:45)
[2025-07-03] MEDS ORDERED: NO NARCOTICS OR SEDATIVES SCH (13:45)
[2025-07-03 13:56] LABS: Alanine Aminotransferase 7.0 U/L (7-52); Albumin Globulin Ratio 1.0 (0.9-2); Albumin Level 2.6 gm/dl (3.4-5.0); Alkaline Phosphatase 155.0 U/L (34-104); Anion Gap 7.0 (3-11); Bilirubin,Total 1.2 mg/dl (0.2-1.0); Blood Urea Nitrogen 6.0 mg/dl (6-23); Calcium 8.1 mg/dl (8.6-10.3); Carbon Dioxide 22.0 mmol/L (21-32); Chloride 106.0 mmol/L (98-107); Creatinine Clr Calc Pharmacy 118.7 ml/min; Globulin 2.5 gm/dl (2.5-4.0); Glucose 139.0 mg/dl (70-99(Fasting)); Potassium 3.6 mmol/L (3.5-5.1); Sodium 135.0 mmol/L (136-145); Total Protein 5.1 gm/dl (6.0-8.3)
[2025-07-03] MEDS: SODIUM CHLORIDE 0.9% 1,000 ML IV SCH (14:54)
[2025-07-04] MEDS ORDERED: KETOROLAC 30 MG/ML VIAL IV PRN (06:29)
[2025-07-04] MEDS ORDERED: IBUPROFEN 600 MG TAB PO SCH (06:30)
--- NOTE | 2025-07-04 07:19 | Obstetrical Progress Note ---
Date of Service July 04, 2025 Assessment & Plan (1) state: routine care. Recovering well so far. Subjective Ambulation: ambulating normally Voiding: no voiding problems (schroeder just removed, TOV currently / hasn't peed yet.) Passing Gas:: Yes Diet Tolerance:: regular diet Lochia:: Small Feeding Type:: breast feeding Physical Exam Constitutional WD/WN, vitals as above Eyes PERRL, conjunctivae normal, anicteric sclerae Neck normal visual inspection Respiratory normal respiratory effort and able to speak in complete sentences; no respiratory distress and no labored breathing Cardiovascular Rate/Rhythm: regular rate and regular rhythm Extremities: no edema Chest (Breasts) Chest: normal inspection of chest Gastrointestinal (Abdomen) Inspection/Auscultation: abdomen normal to inspection Soft, postgravid C/D/I Psychiatric A+Ox3, euthymic affect Genitourinary OB Exam Abdomen: + fundal height Fundus: + firm and + relation to umbilicus (fundus just below umbilicus); not tender Results & Data Vital Signs (Past 12 Hours) Vital Signs Temp Pulse Resp BP Pulse Ox O2 Del Method 07/04/25 06:05 18 100 07/04/25 05:00 18 99 07/04/25 04:10 18 99 07/04/25 04:04 98.8 F 83 16 97/59 L 100 Room Air 07/04/25 03:00 18 99 07/04/25 02:30 18 99 07/04/25 01:30 18 99 07/04/25 00:30 18 100 07/03/25 23:12 99.5 F 82 16 97/58 L 100 Room Air 07/03/25 23:00 18 100 07/03/25 22:15 18 99 07/03/25 21:30 18 100 07/03/25 20:00 18 100
[2025-07-04 07:41] LABS: Hematocrit (blood only) 22.7 % (37.0-47.0); Hemoglobin 7.9 g/dL (12.0-16.0); Immature Granulocytes # (auto) 0.16 K/uL (0.01-0.20); Immature Granulocytes % (auto) 0.8 %; Mean Corpuscular Hemoglobin 31.5 pg (25.0-34.0); Mean Corpuscular Volume 90.4 fL (80.0-100.0); Platelet Count 167 K/uL (130-400); RBC Morphology Unremarkable; RDW Standard Deviation 43.8 fL (36.4-46.3); Red Blood Count 2.51 M/uL (4.20-5.40); White Blood Count 19.40 K/ul (4.8-10.8)
[2025-07-04] MEDS: IBUPROFEN 600 MG TAB PO SCH (07:46)
[2025-07-04 08:34] VITALS: RESP 16; O2SAT 99
[2025-07-04] MEDS: LACTATED RINGER'S 1,000 ML IV SCH (14:15)
[2025-07-05 06:42] LABS: Hematocrit (blood only) 23.5 % (37.0-47.0); Hemoglobin 8.1 g/dL (12.0-16.0)
[2025-07-05 08:56] VITALS: BP 114/77; PULSE 90; TEMP 98.1
--- NOTE | 2025-07-05 09:09 | Obstetrical Progress Note ---
Date of Service July 05, 2025 Assessment & Plan (1) state: Plan Patient is doing well. Plan d/c home. Instructions givens. f/u in 6 weeks. Day #:: 3 Subjective Ambulation: ambulating normally Voiding: no voiding problems Passing Gas:: Yes Diet Tolerance:: regular diet Lochia:: Small Feeding Type:: breast feeding (with bottle supplement) Pain controlled, desires d/c. Physical Exam Constitutional WD/WN, vitals as above Cardiovascular Extremities: no calf tenderness and no edema Gastrointestinal (Abdomen) soft, nt, nd, ff/nt at u, incision c/d/i Psychiatric A+Ox3, euthymic affect Results & Data Vital Signs (Past 12 Hours) Vital Signs Temp Pulse Resp BP Pulse Ox O2 Del Method 07/05/25 07:45 36.7 C 90 16 114/77 99 Room Air 07/05/25 07:45 Room Air 07/04/25 23:08 37.3 C 99 H 16 114/72 99 Room Air
[2025-07-05] MEDS: IBUPROFEN 600 MG TAB PO PRN (11:24)
[2025-07-05] MEDS ORDERED: ACETAMINOPHEN 325 MG TAB PO PRN (12:29)
== END 2025-07-05 12:35 | disposition home or self-care (01) | DRG 788 ==
LOC: OPB 23:07 → 4S1 23:10 → 4E2 07-03 10:05 → 4S3 07-03 11:38